=== PATIENT | female | born 1935 | race Native Hawaiian/Other Pacific Islander ===

== ENCOUNTER 2016-04-11 08:58 | Inpatient (IN) | payer OTHER | END 2016-05-12 08:00 | disposition still patient (30) | LOC: PAVB 08:58 | PROVIDERS: ADMIT Family Medicine | DX: Z51.89 Encounter for other specified aftercare (principal) ==

== ENCOUNTER 2016-05-12 09:00 | Inpatient (IN) | payer OTHER | END 2016-06-12 10:53 | disposition still patient (30) | LOC: PAVB 09:00 | PROVIDERS: ADMIT Family Medicine | DX: Z51.89 Encounter for other specified aftercare (principal) ==

== ENCOUNTER 2016-06-12 11:38 | Inpatient (IN) | payer OTHER | END 2016-07-10 12:33 | disposition still patient (30) | LOC: PAVB 11:38 | PROVIDERS: ADMIT Family Medicine | DX: Z51.89 Encounter for other specified aftercare (principal) ==

== ENCOUNTER 2016-07-01 18:16 | Outpatient (CLI) | payer OTHER | END 2016-07-01 20:19 | disposition home or self-care (01) | LOC: LAB 18:16 | DX: R82.99 Other abnormal findings in urine (principal) | CPT/HCPCS: 81000; 87077; 87086; 87088; 87186 ==

== ENCOUNTER 2016-07-10 12:41 | Inpatient (IN) | payer OTHER | END 2016-08-10 08:09 | disposition still patient (30) | LOC: PAVB 12:41 | PROVIDERS: ADMIT Family Medicine | DX: Z51.89 Encounter for other specified aftercare (principal) ==

== ENCOUNTER 2016-08-10 09:02 | Inpatient (IN) | payer OTHER | END 2016-09-09 09:16 | disposition still patient (30) | LOC: PAVB 09:02 | PROVIDERS: ADMIT Family Medicine | DX: Z51.89 Encounter for other specified aftercare (principal) ==

== ENCOUNTER 2016-08-27 16:30 | Outpatient (CLI) | payer OTHER | END 2016-08-27 19:17 | disposition home or self-care (01) | LOC: LAB 16:30 | DX: Z16.24 Resistance to multiple antibiotics (principal) | CPT/HCPCS: 87081 ==

== ENCOUNTER 2016-09-09 10:24 | Inpatient (IN) | payer OTHER | END 2016-10-10 10:15 | disposition still patient (30) | LOC: PAVB 10:24 | PROVIDERS: ADMIT Family Medicine | DX: Z51.89 Encounter for other specified aftercare (principal) ==

== ENCOUNTER 2016-10-10 10:24 | Inpatient (IN) | payer OTHER | END 2016-11-09 15:25 | disposition still patient (30) | LOC: PAVB 10:24 | PROVIDERS: ADMIT Family Medicine | DX: Z51.89 Encounter for other specified aftercare (principal) ==

== ENCOUNTER 2016-10-27 06:54 | Emergency (ER) | payer OTHER ==
[~2016-10-27] VITALS: Ht 162.6 cm; Wt 72.6 kg
[2016-10-27 08:09] VITALS: BP 111/40; TEMP 98.2
== END 2016-10-27 08:19 ==
LOC: ED 06:54
DX: G40.89 Other seizures (principal); Z91.14 Patient's other noncompliance with medication regimen
CPT/HCPCS: 96374; 99283; J2060

== ENCOUNTER 2016-11-09 15:54 | Inpatient (IN) | payer OTHER | END 2016-12-10 09:47 | disposition still patient (30) | LOC: PAVB 15:54 | PROVIDERS: ADMIT Family Medicine | DX: Z51.89 Encounter for other specified aftercare (principal) ==

== ENCOUNTER 2016-12-04 19:27 | Outpatient (CLI) | payer OTHER | END 2016-12-04 20:30 | disposition home or self-care (01) | LOC: LAB 19:27 | DX: R50.9 Fever, unspecified (principal) | CPT/HCPCS: 81000; 87088 ==

== ENCOUNTER 2016-12-10 11:14 | Inpatient (IN) | payer OTHER | END 2017-01-10 08:44 | disposition still patient (30) | LOC: PAVB 11:14 | PROVIDERS: ADMIT Family Medicine | DX: Z51.89 Encounter for other specified aftercare (principal) ==

== ENCOUNTER 2017-01-10 09:29 | Inpatient (IN) | payer OTHER | END 2017-02-09 10:09 | disposition still patient (30) | LOC: PAVB 09:29 | PROVIDERS: ADMIT Family Medicine | DX: Z51.89 Encounter for other specified aftercare (principal) ==

== ENCOUNTER 2017-02-09 10:16 | Inpatient (IN) | payer OTHER ==
[2017-02-26] MEDS ORDERED: LEVE100S PO (08:07)
[2017-02-26] MEDS ORDERED: LOSA50TA PO (08:08)
[2017-02-26] MEDS ORDERED: SENNA-PLUS1 TAB OR (08:10)
[2017-02-26] MEDS ORDERED: MORP20SO SL (08:19)
[2017-03-01] MEDS ORDERED: [UNRECOGNIZED DRUG - CODE] IM (06:12)
[2017-03-06 04:05] LABS: PLATELET COUNT 175 K/uL (152-353)
[2017-03-06 04:09] LABS: SODIUM 137 mmol/L (136-145)
== END 2017-03-12 13:00 | disposition still patient (30) ==
LOC: PAVB 10:16
PROVIDERS: ADMIT Family Medicine
DX: Z43.1 Encounter for attention to gastrostomy (principal); Z93.1 Gastrostomy status; G40.89 Other seizures; N39.0 Urinary tract infection, site not specified; G30.9 Alzheimer's disease, unspecified; I63.50 Cerebral infarction due to unspecified occlusion or stenosis of unspecified cerebral artery; K59.00 Constipation, unspecified; R26.81 Unsteadiness on feet; R60.9 Edema, unspecified; Z91.81 History of falling
CPT/HCPCS: 80053; 85027

== ENCOUNTER 2017-02-25 18:44 | Inpatient (IN) | payer OTHER ==
[~2017-02-25] VITALS: Ht 162.6 cm; Wt 60.9 kg
[2017-02-26 05:16] VITALS: BP 133/68; TEMP 98; Ht 162.6 cm; Wt 60.9 kg
[2017-02-26] MEDS ORDERED: LEVE100S PO (08:07)
[2017-02-26] MEDS ORDERED: LOSA50TA PO (08:08)
[2017-02-26] MEDS ORDERED: SENNA-PLUS1 TAB OR (08:10)
[2017-02-26] MEDS ORDERED: MORP20SO SL (08:19)
[2017-02-26 09:16] VITALS: BP 160/74; TEMP 98.8
[2017-02-26 13:45] LABS: PLATELET COUNT 180 K/uL (152-353)
[2017-02-26 13:55] LABS: POTASSIUM 4.4 mmol/L (3.6-5.2)
[2017-02-26 20:00] VITALS: BP 164/88; TEMP 98.6
[2017-02-27 08:00] VITALS: BP 189/78; TEMP 99.2
[2017-02-27 19:49] VITALS: BP 166/81; TEMP 98.4
[2017-02-28 08:00] VITALS: BP 173/72; TEMP 98.9
[2017-03-01] MEDS ORDERED: [UNRECOGNIZED DRUG - CODE] IM (06:12)
== END 2017-02-28 17:45 | DRG 101 ==
LOC: MED/SURG 18:44
PROVIDERS: ADMIT Family Medicine
DX: G40.802 Other epilepsy, not intractable, without status epilepticus (principal)
CPT/HCPCS: 36415; 80053; 81000; 85027; 87077; 87086; 87088; 87186; 94760; J1165; J3360

== ENCOUNTER 2017-02-28 19:46 | Inpatient (IN) | payer OTHER ==
[~2017-02-28] VITALS: Ht 162.6 cm; Wt 60.0 kg
[~2017-02-28 19:46] MED LIST: LEVE100S PO; LOSA50TA PO; MORP20SO SL; SENNA-PLUS1 TAB OR
[2017-03-01 00:28] VITALS: BP 110/53; TEMP 98.1; Ht 162.6 cm; Wt 60.0 kg
--- NOTE | 2017-03-01 04:05 | NUR ---
PT RESTING WITH EYES CLOSED, NO S/S OF PAIN OR DISTRESS NOTED, NO SEIZURES NOTED SINCE ADMIT, IV LOCK INTACT TO L WRIST WITH NO PROBLEMS NOTED, O2 IN USE, DEPEND DRY, FEET ELEVATED OFF OF BED ON PILLOW, REPOSITIONED AND TURNED TO L SIDE. WILL MONITOR CLOSELY, RAILS UP X3, CALL LIGHT IN REACH, BED IN LOW POSITION WITH HOB ELEVATED, SEIZURE PRECAUTIONS IN PLACE.
--- NOTE | 2017-03-01 04:07 | NUR ---
02/28/17 AT 2225PT RESTING WITH EYES CLOSED AND SNORING NOTED, NO SEIZURES OR S/S OF DISTRESS, HOB ELEVATED AND PT ON HER BACK, FEET ELEVATED OFF OF BED, SEIZURE PRECAUTIONS IN PLACE, WILL MONITOR CLOSELY.
--- NOTE | 2017-03-01 04:09 | NUR ---
03/01/17 AT 0055CHARLA WITH [facility] HERE TO CHECK ON PT.
--- NOTE | 2017-03-01 04:11 | NUR ---
03/01/17 AT 0208PT REPOSITIONED TO R SIDE, DEPEND DRY, O2 IN USE, NO S/S OF DISTRESS, NO SEIZURES NOTED SINCE ADMIT. IV INTACT, FEET ELEVATED OFF OF BED. SEIZURE PRECAUTIONS IN PLACE. WILL MONITOR CLOSELY, RAILS UP X3, BED IN LOW POSITION WITH HOB ELEVATED.
[2017-03-01] MEDS ORDERED: [UNRECOGNIZED DRUG - CODE] IM (06:12)
--- NOTE | 2017-03-01 06:54 | NUR ---
03/01/17 AT 0640 PT RESTING WITH EYES CLOSED, DOES OPEN EYES SLIGHTLY TO STAFF MOVING HER AROUND IN BED, NO SEIZURES NOTED SINCE ADMIT. DEPEND CHANGED, REPOSITIONED TO BACK, FEET ELEVATED ON PILLOW, SEIZURE PRECAUTIONS IN PLACE, HOB REMAINS ELEVATED, IV INTACT, WILL MONITOR CLOSELY, RAILS UP, CALL LIGHT IN REACH, BED IN LOW POSITION.
--- NOTE | 2017-03-01 15:01 | NUR ---
@ 0800 PT LYING SUPINE, FAMILY IN ROOM, PT IN NAD, NO S/S OF SEIZURES OR PAIN, IV 22G LEFT WRIST, FLUSHES WITHOUT DIFFICULTY, REPOSITIONED PT FOR COMFORT, WILL CONTINUE TO MONITOR.
--- NOTE | 2017-03-01 15:09 | NUR ---
@1200 FAMILY IN ROOM, FAMILY STATED "PT NEEDED PAIN MEDICINE, AND THAT SHE NEVER CRIES, ALWAYS SMILING, AND TODAY ALL SHE HAS DONE IS CRY." [facility] AND DR GOMEZ NOTIFIED. NEW ORDERS RECEIVED AND CARRIED OUT. FAMILY LEFT @ 1400, PT RESTING QUIETLY WITH EYES CLOSED, NAD NOTED, PT HAS NOT CRIED SINCE FAMILY LEFT. WILL CONTINUE TO MONITOR.
--- NOTE | 2017-03-01 15:12 | NUR ---
@1500 PT LYING SUPINE IN BED, NO FAMILY IN ROOM, PT EYES ARE OPEN, RESPONDS WITH A SMILE, AND LAUGHING, NO S/S OF PAIN OR DISTRESS NOTED. REPOSITIONED PT FOR COMFORT TO RIGHT SIDE. PT CLOSED EYES AND LAID HEAD BACK ON PILLOW. WILL CONTINUE TO MONITOR.
--- NOTE | 2017-03-02 00:35 | NUR ---
RESTING WITH EYES CLOSED, NO S/S OF PAIN OR DISTRESS NOTED, IV INTACT WITH FLUID ONGOING, O2 IN USE, NO SEIZURE ACTIVITY DURING SHIFT, SEIZURE PRECAUTIONS IN PLACE, FEET ELEVATED ON PILLOW, HOB REMAINS ELEVATED, REPOSITIONED PER STAFF, WILL MONITOR, RAILS UP X3, CALL LIGHT IN REACH, BED IN LOW POSITION.
--- NOTE | 2017-03-02 02:28 | NUR ---
PT FOUND RESTING WITH EYES CLOSED, OPENS EYES TO STAFF CHANGING DEPEND, LOOKS AT STAFF BUT DOES NOT RESPOND VERBALLY, PT GIVEN BED BATH, LOTION AND DEODORANT APPLIED, PT WOULD NOT OPEN MOUTH FOR MOUTH CARE, APPLIED LIP MOISTURIZER, HAIR BRUSHED. GOWN, DRAW SHEET, AND TOP SHEET CHANGED. FEET ELEVATED ON PILLOW, REPOSITIONED TO R SIDE. HOB ELEVATED AND SEIZURE PRECAUTIONS IN PLACE. WILL MONITOR, RAILS UP X3, CALL LIGHT IN REACH, BED IN LOW POSITION.
--- NOTE | 2017-03-02 03:58 | NUR ---
03/01/2017 AT ANGE MORALES, RN WITH [facility] AT BEDSIDE TALKING WITH PT'S FAMILY DUE TO SOME CONCERNS THAT HAVE BEEN EXPRESSED. SON NESHA AND PT'S BROTHER AT BEDSIDE, A FEMALE ON SPEAKER PHONE. FAMILY HAS VOICED SOME CONCERNS TO [facility] ABOUT PT'S CURRENT OVERALL HEALTH STATUS, HYDRATION AND NUTRITION STATUS. FAMILY MENTIONED POSSIBLY REVOKING HOSPICE. [facility] EXPLAINED THE REASON FOR HOSPICE AND THAT THEY ARE MAINLY "COMFORT". SHE MENTIONED A PEG TUBE FOR HYDRATION WHICH THE FAMILY WAS NOT INTERESTED IN AT THIS TIME. ALSO CONVEYED SOME THINGS CARMEN AND DR. GOMEZ HAVE TALKED ABOUT. FAMILY REQUESTING PT HAVE IV HYDRATION.
--- NOTE | 2017-03-02 04:29 | NUR ---
PT RESTING WITH EYES CLOSED, NO S/S OF PAIN OR DISTRESS NOTED, IV INTACT WITH FLUID ONGOING, REPOSITIONED TO HER BACK, FEET ELEVATED ON PILLOW, HOB REMAINS ELEVATED AND SEIZURE PRECAUTIONS IN PLACE, NO SEIZURES NOTED DURING SHIFT.
--- NOTE | 2017-03-02 06:43 | NUR ---
RESTING WITH EYES CLOSED, DEPEND CHANGED AND PT REPOSITIONED TO L SIDE, FEET ELEVATED ON PILLOW, SEIZURE PRECAUTIONS IN PLACE, HOB ELEVATED, WILL MONITOR CLOSELY, RAILS UP X3, CALL LIGHT IN REACH, BED IN LOW POSITION. NO SEIZURE ACTIVITY DURING SHIFT.
--- NOTE | 2017-03-02 08:00 | NUR ---
PATIENT RESTING IN BED. NAD NOTED. NO C/O VOICED. SPOKE WITH ADRIENNE WITH [facility]. SHE STATED WOULD LIKE FOR PATIENT TO RECEIVE 2 1L NS BAGS AND THAT SOMEONE WOULD BE BY TO D/C ORDER LATER.
--- NOTE | 2017-03-02 11:00 | NUR ---
PATIENT RESTING IN BED. NO WET OR SOILED DIAPER AT THIS TIME. PATIENT TURNED TO RIGHT SIDE. NAD NOTED. NO C/O VOICED.
--- NOTE | 2017-03-02 14:00 | NUR ---
PATIENT LAYING IN BED. SON AT BEDSIDE SHOWING PICTURES. CHECKED PATIENT FOR WET OR SOILED DIAPER. CHANGED OF WET DIAPER; CLEAN APPLIED. TURNED PATIENT TO LEFT SIDE AT THIS TIME. PT TOLERATED WELL.
--- NOTE | 2017-03-02 17:35 | NUR ---
PATIENT LAYING IN BED WITH EYES CLOSED. NAD NOTED. PATIENT CHANGED OF WET DIAPER; NEW CLEAN BRIEF APPLIED. TURNED PATIENT TO RIGHT AT THIS TIME. PATIENT TOLERATED WELL.
[2017-03-02 20:12] VITALS: BP 151/79; TEMP 98.5
--- NOTE | 2017-03-02 22:42 | NUR ---
03/02/17 AT 2220PT RESTING WITH EYES CLOSED, NO S/S OF PAIN OR DISTRESS NOTED, SEIZURE PRECAUTIONS IN PLACE, O2 AT 2LPM VIA NC, RESP RATE NONLABORED, HOB ELEVATED, DEPEND DRY, IV INTACT TO L WRIST WITH NO PROBLEMS NOTED AND NS INFUSING AT 83ML/HR. REPOSITIONED TO L SIDE, FEET ELEVATED ON PILLOW, WILL MONITOR, RAILS UP X3, CALL LIGHT IN REACH, BED IN LOW POSITION.
--- NOTE | 2017-03-03 03:27 | NUR ---
03/03/2017 AT 0032CONTINUES TO REST WITH EYES CLOSED, NO S/S OF PAIN OR DISTRESS NOTED, IV INTACT WITH FLUID ONGOING, O2 IN USE, SEIZURE PRECAUTIONS IN PLACE, NO SEIZURES NOTED, REPOSITIONED TO BACK, FEET ELEVATED ON PILLOW OFF OF BED. PT DOES OPEN EYES AND LOOK AT FARE ENFORCEMENT OFFICER WHILE BEING REPOSITIONED. WILL MONITOR, RAILS UP X3, CALL LIGHT IN REACH, BED IN LOW POSITION WITH HOB ELEVATED.
--- NOTE | 2017-03-03 06:24 | NUR ---
03/03/17 AT 0420PT RESTING WITH EYES CLOSED, NO SEIZURE ACTIVITY NOTED DURING SHIFT, NO S/S OF PAIN OR DISTRESS NOTED. DEPEND CHANGED AND PT REPOSITIONED TO THE R SIDE, FEET ELEVATED OFF OF BED ON PILLOW, SEIZURE PRECAUTIONS IN PLACE, HOB ELEVATED, MOUTH CARE COMPLETED AND LIP MOISTURIZER APPLIED. PT RESISTED MOUTH CARE AT FIRST AND CLINCHED HER TEETH BUT AFTER ANOTHER TRY PT ALLOWED MOUTH CARE. ARMS REMAINS ELEVATED ON PILLOW. 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 WILL MONITOR, RAILS UP X3, CALL LIGHT IN REACH, BED IN LOW POSITION.
--- NOTE | 2017-03-03 06:31 | NUR ---
PT RESTING WITH EYES CLOSED, NO S/S OF PAIN OR DISTRESS NOTED, IV INTACT TO R WRIST WITH NO PROBLEMS NOTED TO SITE AND NS INFUSING AT 83ML/HR, DEPEND DRY, O2 IN USE, SEIZURE PRECAUTIONS, HOB ELEVATED, PT REPOSITIONED TO HER BACK, FEET ELEVATED OFF OF BED, BOTH ARMS ELEVATED ON PILLOW. EDEMA TO L HAND HAS STARTED TO DECREASE IN FINGERS. WILL MONITOR CLOSELY, RAILS UP X3, CALL LIGHT IN REACH, BED IN LOW POSITION.
--- NOTE | 2017-03-03 06:36 | NUR ---
03/03/17 at 0418L HAND, FINGERS FOUND TO BE EDEMATOUS. IV SITE IS IN L WRIST. VERY FAINT BLOOD RETURN NOTED TO IV SITE, FLUID STOPPED AT THIS TIME. AFTER PT CHANGED NOTED IN A PREVIOUS NOTE AND IV TO L WRIST REMOVED AT 0440 [employer] AND [employer] PARALEGAL ELEVATED L HAND ON PILLOW AND APPLIED WARM COMPRESS. WILL CONTINUE TO MONITOR CLOSELY. .
[2017-03-03 09:47] VITALS: BP 170/61; TEMP 97.6
--- NOTE | 2017-03-03 10:00 | NUR ---
PT'S SON AT BS. SON WAS TOLD THAT PT IS TO HAVE NOTHING BY MOUTH BUT SON CONTINUES TO FEED PT. PT COUGHING BUT NAD NOTED AT THIS TIME.
--- NOTE | 2017-03-03 14:00 | NUR ---
PT LYING IN BED RESTING WITH EYES OPENED. NAD NOTED.
[2017-03-03 20:10] VITALS: BP 163/57; TEMP 98.1
--- NOTE | 2017-03-04 00:14 | NUR ---
0000 turned and repositioned pt small blister noted to left buttocks 1cm x 3cm appears to be due to plastic from diaper duoderm applied to area and no diaper reapplied to pt.
[2017-03-04 08:00] VITALS: BP 148/58; TEMP 98.2
--- NOTE | 2017-03-04 08:30 | NUR ---
DR. OGMEZ CALLED AND STATED THAT PTS FAMILY WANTS TO REVOKE HOSPICE. DR. VOGEL NOTIFIED TO PLACE PEG TUBE IN PT. HOSPICE NURSE COMING LATER TODAY TO GET FAMILY TO SIGN PAPERS TO CHANGE FROM HOSPICE TO INPATIENT.
--- NOTE | 2017-03-04 11:00 | NUR ---
JESICA FROM HOSPICE CALLED AND STATED THAT FAMILY REVOKED HOSPICE AND PAPER WORK HAS ALREADY BEEN SIGNED.
--- NOTE | 2017-03-04 15:00 | NUR ---
ORDERS FOR [facility] TAKEN FROM DR. GOMEZ AT THIS TIME. (PT D/C'D FROM HOSPICE AND PROCEDURE WILL BE DONE OUTPT AND THEN TRANSFERRED BACK TO [place].)
--- NOTE | 2017-03-04 15:00 | NUR ---
PT TAKEN BACK TO OR AT THIS TIME FOR PEG TUBE PLACEMENT. (CONSENT SIGNED BY .)
--- NOTE | 2017-03-04 16:00 | NUR ---
PT OUT OF SURGERY AND TOLERATED WELL WITH NO PROBLEMS PER OR.
--- NOTE | 2017-03-04 16:10 | NUR ---
D/C INSTRUCTIONS GIVEN TO FAMILY. FAMILY HAS NO FUTHER QUESTIONS. PT TRANSFERRED TO [facility]IA [facility] AT THIS TIME BY OR.
== END 2017-03-04 14:39 | DRG 101 ==
LOC: MED/SURG 19:46
PROVIDERS: ADMIT Family Medicine
DX: G40.802 Other epilepsy, not intractable, without status epilepticus (principal)
CPT/HCPCS: 36415; 94760; J1165; J3010

== ENCOUNTER 2017-03-04 14:39 | Day surgery (SDC) | payer OTHER ==
[~2017-03-04] VITALS: Ht 30.5 cm; Wt 0.5 kg
[~2017-03-04 14:39] MED LIST changes: +[UNRECOGNIZED DRUG - CODE] IM
== END 2017-03-04 16:32 ==
LOC: OR 14:39
PROC: 0DH63UZ Insertion of Feeding Device into Stomach, Percutaneous Approach (ICD-10-PCS; principal; 2017-03-04)
DX: R62.7 Adult failure to thrive (principal); R13.19 Other dysphagia
CPT/HCPCS: J0461; J2001; J2704

== ENCOUNTER 2017-03-12 14:06 | Inpatient (IN) | payer OTHER | END 2017-04-11 09:23 | disposition still patient (30) | LOC: PAVB 14:06 | PROVIDERS: ADMIT Family Medicine ==

== ENCOUNTER 2017-04-05 05:47 | Outpatient (CLI) | payer OTHER | END 2017-04-05 06:50 | disposition home or self-care (01) | LOC: LAB 05:47 | DX: Z79.899 Other long term (current) drug therapy (principal); Z51.81 Encounter for therapeutic drug level monitoring | CPT/HCPCS: 80185; 82542 ==

== ENCOUNTER 2017-04-11 09:57 | Inpatient (IN) | payer OTHER | END 2017-05-12 09:42 | disposition still patient (30) | LOC: PAVB 09:57 | PROVIDERS: ADMIT Family Medicine ==

== ENCOUNTER 2017-04-12 06:19 | Outpatient (CLI) | payer OTHER | END 2017-04-12 07:20 | disposition home or self-care (01) | LOC: LAB 06:19 | DX: Z79.899 Other long term (current) drug therapy (principal); Z51.81 Encounter for therapeutic drug level monitoring | CPT/HCPCS: 80185; 82542 ==

== ENCOUNTER 2017-05-12 10:40 | Inpatient (IN) | payer OTHER | END 2017-06-12 09:58 | disposition still patient (30) | LOC: PAVB 10:40 | PROVIDERS: ADMIT Family Medicine ==

== ENCOUNTER 2017-05-22 15:40 | Outpatient (CLI) | payer OTHER ==
[2017-05-22 15:58] LABS: PLATELET COUNT 152 K/uL (152-353)
== END 2017-05-22 22:06 | disposition home or self-care (01) ==
LOC: LAB 15:40
PROVIDERS: Family Medicine
DX: R05 Cough (principal); R50.9 Fever, unspecified; J40 Bronchitis, not specified as acute or chronic
CPT/HCPCS: 80053; 83880; 85027

== ENCOUNTER 2017-06-12 10:59 | Inpatient (IN) | payer OTHER | END 2017-07-10 09:22 | disposition still patient (30) | LOC: PAVB 10:59 | PROVIDERS: ADMIT Family Medicine ==

== ENCOUNTER 2017-07-10 10:21 | Inpatient (IN) | payer OTHER | END 2017-08-10 08:00 | disposition still patient (30) | LOC: PAVB 10:21 | PROVIDERS: ADMIT Family Medicine ==

== ENCOUNTER 2017-08-10 09:00 | Inpatient (IN) | payer OTHER | END 2017-09-09 09:08 | disposition still patient (30) | LOC: PAVB 09:00 | PROVIDERS: ADMIT Family Medicine ==

== ENCOUNTER 2017-08-12 08:53 | Outpatient (CLI) | payer OTHER ==
[2017-08-12 09:46] LABS: PLATELET COUNT 154 K/uL (152-353)
[2017-08-12 09:54] LABS: POTASSIUM 3.6 mmol/L (3.6-5.2)
== END 2017-08-12 22:53 | disposition home or self-care (01) ==
LOC: LAB 08:53
PROVIDERS: Family Medicine
DX: I10 Essential (primary) hypertension (principal); G30.8 Other Alzheimer's disease
CPT/HCPCS: 80053; 85027

== ENCOUNTER 2017-09-09 10:02 | Inpatient (IN) | payer OTHER | END 2017-10-07 19:30 | disposition E | LOC: PAVB 10:02 | PROVIDERS: ADMIT Family Medicine ==

== ENCOUNTER 2017-09-10 08:42 | Outpatient (CLI) | payer OTHER | END 2017-09-10 21:38 | disposition home or self-care (01) | LOC: LAB 08:42 | DX: Z79.899 Other long term (current) drug therapy (principal); Z51.81 Encounter for therapeutic drug level monitoring; G30.8 Other Alzheimer's disease | CPT/HCPCS: 80185; 82542 ==